=== PATIENT | female | born 1980 | race Caucasian/White ===

== ENCOUNTER 2017-09-07 20:55 | Emergency (ER) | payer OTHER ==
[~2017-09-07] VITALS: Ht 175.3 cm; Wt 72.6 kg
[~2017-09-07 20:55] MED LIST: ALBU8HFA IH; DICY10CA88 PO; GUAI473S11 PO; ONDA4TAB6 PO; PANT20TA3 PO; SUCR1ORA2 PO
[2017-09-07 21:00] VITALS: BP 120/72
[2017-09-08] MEDS ORDERED: CEPH500C5 PO (02:12)
[2017-09-08] MEDS ORDERED: SULF1TAB49 PO (02:12)
[2017-09-08] MEDS ORDERED: HYDR-569 PO (02:16)
== END 2017-09-08 02:46 | disposition home or self-care (01) ==
LOC: ER 20:56
DX: L03.314 Cellulitis of groin (principal); G43.909 Migraine, unspecified, not intractable, without status migrainosus; Z90.49 Acquired absence of other specified parts of digestive tract; Z79.899 Other long term (current) drug therapy
CPT/HCPCS: 99283

== ENCOUNTER 2018-05-23 13:21 | Emergency (ER) | payer SELFPAY ==
[~2018-05-23] VITALS: Ht 175.3 cm; Wt 73.6 kg
[~2018-05-23 13:21] MED LIST changes: +CEPH500C5 PO; +HYDR-4383 PO
[2018-05-23 13:35] VITALS: BP 104/75
== END 2018-05-23 14:40 | disposition home or self-care (01) ==
LOC: ER 13:21
DX: M79.672 Pain in left foot (principal); M25.572 Pain in left ankle and joints of left foot; G43.909 Migraine, unspecified, not intractable, without status migrainosus; Z90.49 Acquired absence of other specified parts of digestive tract
CPT/HCPCS: 73610; 73630; 99284

== ENCOUNTER 2023-08-16 11:55 | Emergency (ER) | payer SELFPAY ==
[~2023-08-16] VITALS: Ht 175.3 cm; Wt 72.9 kg
[~2023-08-16 11:55] MED LIST changes: -CEPH500C5 PO; +PANT20TA18 PO; -PANT20TA3 PO
[2023-08-16 12:26] VITALS: BP 109/76
[2023-08-16] MEDS: SUMAtriptan succ. 6 MG/0.5ml vial SQ ONE (13:18)
[2023-08-16] MEDS: diphenhydrAMINE 25mg capsule PO ONE (13:52)
[2023-08-16] MEDS: dexamethasone 4mg tablet PO ONE (13:53)
[2023-08-16 13:54] VITALS: PULSE 79; RESP 14; TEMP 97.8; O2SAT 97
== END 2023-08-16 14:05 | disposition home or self-care (01) ==
LOC: ER 11:56
DX: G43.909 Migraine, unspecified, not intractable, without status migrainosus (principal); F17.210 Nicotine dependence, cigarettes, uncomplicated; Z79.899 Other long term (current) drug therapy; Z79.2 Long term (current) use of antibiotics; Z90.49 Acquired absence of other specified parts of digestive tract
CPT/HCPCS: 96372; 99283; J3030; Q0163

== ENCOUNTER 2024-03-27 16:54 | Emergency (ER) | payer OTHER ==
[~2024-03-27] VITALS: Ht 180.3 cm; Wt 78.6 kg
[2024-03-27] MEDS ORDERED: HYDR-3965 PO (17:46)
[2024-03-27] MEDS: ondansetron 4mg rapidly disintigrating tab PO ONE (18:46)
[2024-03-27] MEDS: HYDROcodone/acetaminophen 10/325mg tab PO ONE (18:46)
[2024-03-27 18:50] VITALS: BP 116/70; PULSE 80; RESP 16; TEMP 97.8; O2SAT 97
== END 2024-03-27 18:53 | disposition home or self-care (01) ==
LOC: ER 16:54
DX: S00.33XA Contusion of nose, initial encounter (principal); G43.909 Migraine, unspecified, not intractable, without status migrainosus; Z90.49 Acquired absence of other specified parts of digestive tract; W19.XXXA Unspecified fall, initial encounter; Y93.89 Activity, other specified; Y92.89 Other specified places as the place of occurrence of the external cause; Y99.8 Other external cause status
CPT/HCPCS: 99283

== ENCOUNTER 2025-02-08 14:00 | Emergency (ER) | payer SELFPAY ==
[~2025-02-08] VITALS: Ht 175.3 cm; Wt 78.2 kg
--- NOTE | 2025-02-08 14:18 | ELECTROCARDIOGRAPH REPORT ---
[facility] Test Date: 2025-02-08 Test Time: 14:16:44 Pat Name: DENISSE CUADRA Department: [facility]- Patient ID: [facility]-[id number] Room: Gender: F S[place] Smoker: : 1980 Requested By: CUCO HOLCOMB Order Number: [id number] Reading MD: Dr. AMAURY Steele Measurements Intervals [place] Rate: 99 P: 62 AR: 142 QRS: 117 QRSD: 104 T: 31 QT: 357 QTc: 459 Interpretive Statements Sinus rhythm Left atrial enlargement Probable right ventricular hypertrophy Electronically Signed On 02-09-2025 13:52:[address] AMAURY Steele Please click the below link to view image of tracing.
[2025-02-08 14:30] LABS: MEAN PLATELET VOLUME 7.2 FL (7.4-10.4); RED CELL DISTRIBUTION WIDTH 13.5 % (11.5-14.5)
[2025-02-08 14:56] LABS: CREATININE 0.74 MG/DL (0.40-0.90); PRO BRAIN NATRIURETIC PEPTIDE 36 PG/ML (0-125); TOTAL CARBON DIOXIDE 28.4 MMOL/L (24-32); eCRCL 100 ML/MIN; eGFR 85 ML/MIN
--- NOTE | 2025-02-08 15:11 | RADIOLOGY REPORT ---
CHEST RADIOGRAPH INDICATION: CP TECHNIQUE: Single frontal view of the chest was obtained COMPARISON: None FINDINGS: Lines and Tubes: None Lungs: No focal consolidation. Pleura: No effusion. No pneumothorax. Cardiomediastinal contours: Unremarkable Bones: No acute osseous abnormality. IMPRESSION: No acute cardiopulmonary disease.
[2025-02-08 19:37] VITALS: TEMP 96.9
--- NOTE | 2025-02-08 19:58 | Physician Documentation ---
History of Present Illness ~ Chief Complaint: Chest Pain Stated Complaint: ABD PAIN Time Seen by MD: 19:42 Primary Medical Doctor: [facility] HPI 44-year-old female with a history of intermittent abdominal pain and chest pain presents to the ED today with the acute onset chest pain after drinking coffee in his morning. He states most of the pain has gone away but she has a intermittent sharp chest pain in the substernal region which is reproducible with inspiration. Denies any cardiac history. Has not any nausea vomiting or diarrhea Day of Onset: Feb 08, 2025 Tetanus within 5 Years?: Yes Allergies: Coded Allergies: No Known Allergies (Unverified , 02/08/25) Active Prescriptions See Medication Reconciliation Form. Medication Reconciliation Scheduled Dicyclomine Hcl* (Bentyl*), 1 CAP PO TID Guaifenesin/Codeine Phos AC Syrup* (Cheratussin AC Syrup*), 10 ML PO Q6H Ondansetron Hcl (Zofran), 1 TABLET PO Q8H Pantoprazole Sodium (Protonix), 1 TAB PO DAILY Sucralfate (Carafate), 10 ML PO Q6H albuterol inhaler (Pro-Air Inhaler), 2 PUFFS IH Q6H Scheduled PRN Hydrocodone/Acetaminophen ([place] 5-325 Tablet), 1-2 TAB PO Q4HPRN PRN for pain Past Medical History Past Medical History: Migraine Past Surgical History: cholecystectomy Alcohol Use: Occasionally Lives with: Family Lives In: Home Occupation: other Review of Systems All Other Systems at this time: Reviewed and Negative ROS As stated above in the HPI, otherwise all systems are reviewed and negative. Physical Exam Vital Signs: Temperature: 96.9, Source: Oral, Heart Rate: 78, Respiratory Rate: 16, BP: 117/60, Pulse Oximetry: 100, Weight: 78.200 Oxygen Flow Rate: 0 Physical Exam General: Alert, no apparent distress. HEENT: PERRL, EOMI, no injection, moist mucous membranes. Neck: Full range of motion. Respiratory: Lungs clear, no respiratory distress. Chest: No accessory muscle use. Cardiovascular: Regular rate and rhythm, no murmurs. Gastrointestinal: Soft, nontender, nondistended. Bowels sounds present. Extremities: Normal range of motion, no deformity. Neurologic: Oriented x4. Psychiatric: Normal mood and affect. Skin: Normal color, warm and dry. No edema, no ecchymosis. Progress Results/Orders Results/Orders Completed Orders - ALEXIS PUGA [employer] Alum Hydrox/Simeth Susp (Maalox Or (02/08/25 19:50) Lidocaine 2% Viscous (Xylocaine 2% Visco (02/08/25 19:50) Ketorolac Trometh 30mg/Ml Vial (Toradol (02/08/25 19:50) Medications Received in ER Medications (Trade) Dose Ordered Sig/Joe Route PRN Reason Start Time Stop Time Status Last Admin Dose Admin (Maalox oral suspension) 30 ml ONCE ONCE PO 02/08/25 19:50 02/08/25 19:51 DC 02/08/25 20:14 30 ML (Xylocaine 2% Viscous 15mL cup) 15 ml Q4H PRN MM sore throat 02/08/25 19:50 02/08/25 20:38 DC 02/08/25 20:14 15 ML (Toradol inj. 30mg/ml) 30 mg ONCE ONCE IM 02/08/25 19:50 02/08/25 19:51 DC 02/08/25 20:15 30 MG Vital Signs 02/08/25 02/08/25 02/08/25 02/08/25 14:08 19:37 20:15 20:21 Temp 96.9 96.9 Pulse 100 78 Resp 18 16 16 18 B/P (MAP) 128/82 117/60 (79) Pulse Ox 99 100 O2 Flow Rate 0 0 02/08/25 20:22 Pulse 74 Resp 18 B/P (MAP) 120/68 Pulse Ox 98 Laboratory Tests Test 02/08/25 14:21 02/08/25 16:13 02/08/25 17:51 White Blood Count 12.8 H Red Blood Count 4.69 Hemoglobin 15.1 Hematocrit 45.2 H Mean Corpuscular Volume 96.3 Mean Corpuscular Hemoglobin 32.3 H Mean Corpuscular Hemoglobin Concent 33.5 Red Cell Distribution Width 13.5 Platelet Count 410 Mean Platelet Volume 7.2 L Neutrophils (%) (Auto) 64.8 Lymphocytes (%) (Auto) 27.2 Monocytes (%) (Auto) 6.1 Eosinophils (%) (Auto) 0.9 Basophils (%) (Auto) 1.0 Neutrophils # (Auto) 8.3 H Lymphocytes # (Auto) 3.5 Monocytes # (Auto) 0.8 Eosinophils # (Auto) 0.1 Basophils # (Auto) 0.1 CBC Comment Sodium Level 140 Potassium Level 4.2 Chloride Level 105 Carbon Dioxide Level 28.4 Anion Gap 7 L Blood Urea Nitrogen 7 Creatinine 0.74 Estimated GFR/1.73 m2 85 BUN/Creatinine Ratio 9.5 L Glucose Level 96 Calcium Level 9.2 Troponin I High Sensitivity < 4 L < 4 L < 4 L Troponin I High Sens Percent Delta Troponin I Hi Sens Absolute Change Pro-B-Type Natriuretic Peptide 36 Albumin 3.8 Chemistry Comments Medical Decision Making Additional information obtaine: N/A Findings This patient does not present with any signs of an acute cardiac event based on her laboratory values normal EKG and per my interpretation her x-ray shows no signs of the opacities or infiltrates line new line I am more suspicious of indigestion and anxiety for any cardiac pathology. The patient states that she does not want to wait for any further evaluation and I do not see that she is having any emergent crisis therefore feel it is prudent to discharge her for outpatient therapy Differential Dx:Considerations: Include: Chest wall contusion, Flail chest, Myocardial contusion, Pneumothorax, Pulmonary contusion, Rib fracture, Renal contusion, Splenic fracture, Tension pneumothorax, Other Departure Disposition: 01 HOME / SELF CARE / HOMELESS Impression: Primary Impression: Chest wall pain Condition: Stable Discharge Instructions: Nonspecific Chest Pain, Adult Referrals: NO PRIMARY CARE PROVIDER (PCP) Signature Scribe Signature: [email or web address] Attestation: Scribed for Alexis Puga [employer] Recovery Worker by Alexis Castro NP . 02/08/25 19:58 ALEXIS PUGA NP Feb 08, 2025 19:58
[2025-02-08] MEDS: LIDOcaine 2% Viscous 15ml cup MM PRN (20:14)
[2025-02-08] MEDS: mag hydrox/Alum hydrox/simeth 30ml oral suspension PO ONE (20:14)
[2025-02-08] MEDS: ketorolac trometh 30MG/ML vial 30 MG/ML VIAL IM ONE (20:15)
[2025-02-08 20:22] VITALS: BP 120/68; PULSE 74; RESP 18; O2SAT 98
== END 2025-02-08 20:38 | disposition home or self-care (01) ==
LOC: ER 14:00
DX: R07.89 Other chest pain (principal); G43.909 Migraine, unspecified, not intractable, without status migrainosus; Z90.49 Acquired absence of other specified parts of digestive tract; Z79.899 Other long term (current) drug therapy; Z72.89 Other problems related to lifestyle
CPT/HCPCS: 36415; 71045; 80048; 83880; 84484; 85025; 93005; 96372; 99285; J1885